=== PATIENT | male | born 1970 | race Caucasian/White ===

== ENCOUNTER → 2021-04-25 | Outpatient (CLI) | payer BC | LOC: COL.RAD 13:11 | DX: M51.16 Intervertebral disc disorders with radiculopathy, lumbar region (principal); M48.061 Spinal stenosis, lumbar region without neurogenic claudication ==

== ENCOUNTER 2022-04-06 13:33 | Day surgery (SDC) | payer BC ==
[~2022-04-06] VITALS: Ht 176.5 cm; Wt 77.2 kg
[2022-04-06 14:06] VITALS: BP 123/75; PULSE 60; TEMP 97.3
[2022-04-06 15:05] VITALS: BP 122/79; PULSE 56; TEMP 97.3
[2022-04-06 15:20] VITALS: BP 116/80; PULSE 60
[2022-04-06 15:35] VITALS: BP 126/77; PULSE 54
[2022-04-06 15:50] VITALS: BP 127/74; PULSE 56
--- NOTE | 2022-04-06 15:55 | NUR ---
1505 RETURNS TO ROOM 8 PER CART. AWAKE, ALERT. RESP UNLABORED. AMBULATES TO RECLINER WITH STANDBY ASSIST. DENIES NAUSEA OR ABD PAIN. VITAL SIGNS OBTAINED. CALL LIGHT AT SIDE. HERE 1520 DR. RUEDA HERE TO VISIT WITH PATIENT 1535 T[place] PO MUFFIN AND SPRITE WITHOUT NAUSEA 1540 DISCHARGE INSTRUCTIONS REVIEWED. PATIENT VERBALIZES UNDERSTANDING. COPY PROVIDED IN DISCHARGE FOLDER 1550 DRESSES SELF
== END 2022-04-06 15:58 | disposition home or self-care (01) ==
LOC: SDCO 13:33
DX: D12.8 Benign neoplasm of rectum (principal); Z86.010 Personal history of colon polyps
CPT/HCPCS: J2704; J7120